=== PATIENT | male | born 1980 | race African-American/Black ===

== ENCOUNTER 2016-12-23 10:52 | Emergency (ER) | payer OTHER ==
[~2016-12-23] VITALS: Ht 180.3 cm; Wt 91.0 kg
[2016-12-23 11:04] VITALS: BP 136/37
== END 2016-12-23 12:22 | disposition home or self-care (01) ==
LOC: ER 11:21
DX: S20.222A Contusion of left back wall of thorax, initial encounter (principal); F12.10 Cannabis abuse, uncomplicated; Y04.0XXA Assault by unarmed brawl or fight, initial encounter; Y93.89 Activity, other specified; Y92.018 Other place in single-family (private) house as the place of occurrence of the external cause
CPT/HCPCS: 71010; 99283

== ENCOUNTER 2017-12-27 12:17 | Emergency (ER) | payer OTHER ==
[~2017-12-27] VITALS: Ht 182.9 cm; Wt 86.0 kg
[2017-12-27] MEDS ORDERED: IBUPROFEN 600MG TABLET PO ONE (14:30)
[2017-12-27 14:32] VITALS: BP 125/70
== END 2017-12-27 15:34 | disposition home or self-care (01) ==
LOC: ER 14:07
DX: S22.41XA Multiple fractures of ribs, right side, initial encounter for closed fracture (principal); F12.10 Cannabis abuse, uncomplicated; V29.88XA Motorcycle rider (driver) (passenger) injured in other specified transport accidents, initial encounter; Y93.89 Activity, other specified; Y92.89 Other specified places as the place of occurrence of the external cause; Y99.8 Other external cause status
CPT/HCPCS: 71046; 71100; 99284